=== PATIENT | female | born 1995 | race Caucasian/White ===

== ENCOUNTER 2022-03-24 19:01 | Emergency (ER) | payer OTHER, SELFPAY ==
--- NOTE | 2022-03-24 19:12 | ED.URI ---
HPI - URI/Sore Throat General Chief Complaint: Upper Respiratory Infection Stated Complaint: chest on fire when cough Time Seen by Provider: 03/24/22 19:12 Source: patient and RN notes reviewed History of Present Illness HPI Narrative: patient is a 26-year-old female who presents to the Urgent Care with complaints of runny nose for 5 days and cough for the last 3 days. Patient states she has been taking Mucinex and DayQuil without much symptom relief. Denies any recent fevers, nausea, vomiting. No other acute complaints. No acute distress noted. Patient aware of plan of care. Some parts of this dictation were generated by voice recognition software and may contain typographical and/or grammatical inaccuracies. Related Data Home Medications Medication Instructions Recorded Confirmed ferrous sulfate 325 mg (65 mg mg 03/24/22 iron) tablet Allergies Allergy/AdvReac Type Severity Reaction Status Date / Time Penicillins Allergy Unknown Verified 03/24/22 19:17 Review of Systems Review of Systems: CONSTITUTIONAL: Denies fever, chills, or sweats. EYES: Denies visual changes, redness, or discharge. ENT: reports of runny nose and postnasal drainage. CARDIOVASCULAR: Denies chest pain, palpitations, or edema. RESPIRATORY: Reports a cough without dyspnea GASTROINTESTINAL: Denies abdominal pain, nausea, vomiting, or diarrhea. GENITOURINARY: Denies dysuria or hematuria. SKIN: Denies rash or itching. MUSCULOSKELETAL: Denies back pain, joint pain, or myalgia. NEUROLOGIC: Denies headache, numbness, or weakness. All other systems reviewed are negative, except as documented in HPI. PMFSH Comments At the time of my signature, I reviewed and agree with the nursing past medical, surgical, social, and family history. There is no relevant family history pertinent to the patient complaint. Exam Narrative: GENERAL: This is a well-nourished, well-developed patient, in no apparent distress. HEAD: normocephalic, atraumatic. EYES: PERRL. Sclera clear/white. Vision is grossly intact. EARS: External ears normal, auditory canals clear and without drainage, TMs normal without perforation. Hearing grossly intact. NOSE: External nose normal with no obvious nasal discharge, nares without redness, Clear rhinorrhea. THROAT: Mucous membranes moist, posterior pharynx clear. Moderate postnasal drainage. NECK: Neck supple, non-tender without lymphadenopathy, masses or thyromegaly. CARDIOVASCULAR: Regular rate and rhythm without murmurs, gallops, or rubs. RESPIRATORY: Clear to auscultation. Breath sounds equal bilaterally. No wheezes, rales, or rhonchi. SKIN: warm, intact with no suspicious lesions or rash, good texture and turgor. NEURO: awake, alert, and oriented to person, place and time. There were no obvious focal neurologic abnormalities. EXTREMITIES: No clubbing, cyanosis, or edema. Course Course Level of Care: Express Care Visit Vital Signs Vital signs: Vital Signs Temperature 98.5 F 03/24/22 19:14 Pulse Rate 101 H 03/24/22 19:14 Respiratory Rate 20 03/24/22 19:14 Blood Pressure 107/60 03/24/22 19:14 Pulse Oximetry 99 03/24/22 19:14 Oxygen Delivery Room Air 03/24/22 19:14 Temperature 98.5 F 03/24/22 19:14 Pulse Rate 101 H 03/24/22 19:14 Respiratory Rate 20 03/24/22 19:14 Blood Pressure 107/60 03/24/22 19:14 Pulse Oximetry 99 03/24/22 19:14 Oxygen Delivery Room Air 03/24/22 19:14 reviewed MDM - URI/Sore Throat MDM Narrative Medical decision making narrative: advised patient to take a daily antihistamine such as Claritin or Zyrtec in the morning and use Benadryl prior to bedtime. May continue Mucinex if cough is productive. Use the Tessalon Perles as needed for cough suppressant. Follow-up with your PCP within 2-5 days or for worsening symptoms or failure to improve. Differential Diagnosis Differential diagnosis: Likely upper respiratory infection, croup, otitis media, sinu
[2022-03-24 19:14] VITALS: BP 107/60; PULSE 101; RESP 20; TEMP 36.9; O2SAT 99
== END 2022-03-24 19:33 | disposition home or self-care (01) ==
PROVIDERS: Emergency Provider Nurse Practitioner Family
DX: R05.9 Cough, unspecified (principal)
CPT/HCPCS: 99213; G0463